=== PATIENT | female | born 1975 | race Caucasian/White ===

== ENCOUNTER 2016-09-12 04:05 | Emergency (ER) | payer BC ==
[~2016-09-12 04:05] MED LIST: BIRTHCONTROL; DYAZIDE 37.5/251 CAP PO; EPIDRIN CAPSULE1 CAP; LEXAPRO10 MG PO; LORTAB 5/500 TA1 TAB; MAGNESIUM OXID200 MG PO; NORCO 5/325 TAB1 TAB PO; OXYCODONE/APAP PO; PREDNISONE10 MG PO; PRENATAL1 EACH PO; RELPAX40 MG; RIBOFLAVIN100 MG PO; SYNTHROID100 MCG PO; TOPAMAX25 MG; TRANDATE100 MG PO; ZOFRAN ODT4 MG/UDTAB PO
[2017-01-19] MEDS ORDERED: VIIBRYD10 M1 PO (13:26)
[2017-01-19] MEDS ORDERED: RELPAX40 M1 PO (13:27)
[2017-01-19] MEDS ORDERED: GLUCOPHAGE500 M3 PO (13:27)
[2017-01-19] MEDS ORDERED: VITAMIN D31000 UNI3 PO (13:27)
[2017-01-19] MEDS ORDERED: [UNRECOGNIZED DRUG - OTHER] PO (13:28)
[2017-01-19] MEDS ORDERED: TREXIMET PO (13:28)
== END 2016-09-12 06:26 ==
LOC: EDMED 04:05
DX: G43.909 Migraine, unspecified, not intractable, without status migrainosus (principal); F41.9 Anxiety disorder, unspecified; Z79.899 Other long term (current) drug therapy
CPT/HCPCS: J0595; J1170; J1200; J1885; J2405; J2550; J7030